=== PATIENT | female | born 2000 | race Caucasian/White ===

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

== ENCOUNTER 2022-11-20 10:58 | Outpatient (CLI) | payer MEDICAID | END 2022-11-20 10:59 | disposition home or self-care (01) | LOC: DI 10:58 | PROVIDERS: ATTEND Registered Nurse | DX: I34.1 Nonrheumatic mitral (valve) prolapse (principal); I34.0 Nonrheumatic mitral (valve) insufficiency | CPT/HCPCS: 93306 ==